=== PATIENT | female | born 2000 | race Two or more races ===

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

== ENCOUNTER → 2020-08-19 | Outpatient (CLI) | payer OTHER ==
[~2020-08-19] MED LIST changes: +PRENATAL TABLE1 EAC1 PO
== END | disposition home or self-care (01) ==
LOC: PRENATAL 10:58
PROVIDERS: ATTEND Obstetrics & Gynecology Maternal & Fetal Medicine
DX: O35.0XX1 Maternal care for (suspected) central nervous system malformation in fetus, fetus 1 (principal); O35.3XX1 Maternal care for (suspected) damage to fetus from viral disease in mother, fetus 1; O98.513 Other viral diseases complicating pregnancy, third trimester; Z36.89 Encounter for other specified antenatal screening; Z3A.34 34 weeks gestation of pregnancy

== ENCOUNTER 2020-09-18 06:03 | Outpatient (CLI) | payer OTHER ==
[~2020-09-18 06:03] MED LIST changes: -PRENATAL TABLE1 EAC1 PO
[2020-09-18] MEDS ORDERED: PRENATAL TABLE1 EAC1 PO (06:31)
== END 2020-09-18 12:27 | disposition home or self-care (01) ==
LOC: OBS/DEL 06:03
PROVIDERS: ATTEND Specialist
DX: O46.8X3 Other antepartum hemorrhage, third trimester (principal); Z20.828 Contact with and (suspected) exposure to other viral communicable diseases

== ENCOUNTER 2020-09-21 12:34 | Inpatient (IN) | payer OTHER ==
[~2020-09-21] VITALS: Ht 152.4 cm; Wt 68.9 kg
[~2020-09-21 12:34] MED LIST changes: +PRENATAL TABLE1 EAC1 PO
== END 2020-09-24 18:37 | disposition home or self-care (01) | DRG 807 ==
LOC: LDR 12:34 → OB/GYN 19:26
PROVIDERS: ADMIT Specialist; ATTEND Specialist
PROC: 10E0XZZ Delivery of Products of Conception, External Approach (ICD-10-PCS; principal; 2020-09-21)
PROC: 10907ZC Drainage of Amniotic Fluid, Therapeutic from Products of Conception, Via Natural or Artificial Opening (ICD-10-PCS; 2020-09-21)
PROC: 3E033VJ Introduction of Other Hormone into Peripheral Vein, Percutaneous Approach (ICD-10-PCS; 2020-09-21)
PROC: 4A1HXFZ Monitoring of Products of Conception, Cardiac Rhythm, External Approach (ICD-10-PCS; 2020-09-21)
DX: O99.824 Streptococcus B carrier state complicating childbirth (principal); Z37.0 Single live birth; O90.81 Anemia of the puerperium; D64.9 Anemia, unspecified; Z3A.39 39 weeks gestation of pregnancy